=== PATIENT | female | born 1985 | race American Indian/Alaskan Native ===

== ENCOUNTER 2019-04-08 16:46 | Outpatient (CLI) | payer OTHER | END 2019-04-09 10:26 | disposition home or self-care (01) | LOC: OBS/DEL 16:46 | DX: O76 Abnormality in fetal heart rate and rhythm complicating labor and delivery (principal); O35.8XX0 Maternal care for other (suspected) fetal abnormality and damage, not applicable or unspecified ==

== ENCOUNTER 2019-04-20 14:18 | Inpatient (IN) | payer OTHER ==
[~2019-04-20] VITALS: Ht 152.4 cm; Wt 68.9 kg
[2019-04-23] MEDS ORDERED: PERCOCET 5-3251 EACH PO (10:57)
[2019-04-23] MEDS ORDERED: COLACE100 MG PO (10:58)
[2019-04-23] MEDS ORDERED: IBUPROFEN600 MG PO (10:58)
[2019-04-23] MEDS ORDERED: SIMETHICONE125 M1 PO (10:59)
== END 2019-04-23 11:31 | disposition home or self-care (01) | DRG 788 ==
LOC: OB/GYN 14:18 → LDR 14:18 → OB/GYN 18:29
PROVIDERS: ADMIT Obstetrics & Gynecology
PROC: 4A1HXCZ Monitoring of Products of Conception, Cardiac Rate, External Approach (ICD-10-PCS; 2019-04-20)
PROC: 4A033R1 Measurement of Arterial Saturation, Peripheral, Percutaneous Approach (ICD-10-PCS; 2019-04-20)
PROC: 10D00Z1 Extraction of Products of Conception, Low, Open Approach (ICD-10-PCS; principal; 2019-04-20 15:00)
DX: O82 Encounter for cesarean delivery without indication (principal); O34.211 Maternal care for low transverse scar from previous cesarean delivery; Z3A.38 38 weeks gestation of pregnancy; Z37.0 Single live birth